=== PATIENT | female | born 1995 | race Two or more races ===

== ENCOUNTER 2018-09-24 17:13 | Emergency (ER) | payer SELFPAY ==
[~2018-09-24] VITALS: Ht 167.6 cm; Wt 124.7 kg
[2018-09-24 17:24] VITALS: BP 137/88
== END 2018-09-24 17:46 | disposition home or self-care (01) ==
LOC: ER 17:13
DX: G51.0 Bell's palsy (principal); Z98.890 Other specified postprocedural states
CPT/HCPCS: Z7502